=== PATIENT | female | born 1935 | race Caucasian/White ===

== ENCOUNTER 2018-08-02 20:00 | Emergency (ER) | payer BC, OTHER ==
[2018-08-02 20:23] VITALS: BP 170/88; PULSE 88; TEMP 97.7; BMI 24.2
--- NOTE | 2018-08-02 20:23 | PDOC ---
Documentation entered by Jorden Vazquez SCRIBE, acting as scribe for Angel Blount MD. Angel Blount MD: This documentation has been prepared by the George ujng Xhesika, SCRIBE, under my direction and personally reviewed by me in its entirety. I confirm that the documentation accurately reflects all work, treatment, procedures, and medical decision making performed by me. History of Present Illness - General Chief Complaint: Foreign Body (FB) Stated Complaint: FB RT EAR History Source: Patient Exam Limitations: No Limitations - History of Present Illness Initial Comments: 08/02/18 20:25 Procedure note foreign body removal right ear Hearing a tip was readily visible on direct examination a yellow scoop curette was used to remove it without difficulty post removal there was no evidence of trauma to the external canal or eardrum. Patient tolerated the procedure well Assessment and plan: This is an 83-year-old female who hearing a tip was stuck in her right external ear canal. It was removed without difficulty and patient was discharged home. 08/02/18 20:26 The patient is a 83 year old female, with a significant past medical history of high cholesterol (complaint with medications) and Hard of hearing who presents to the emergency department with a foreign body in her ear since this morning. The patient states she fell asleep last night with her hearing aid in her right ear and when she woke up this morning the nub was missing from the hearing aid. The patient denies any pain ear pain or discharge. The patient denies chest pain, shortness of breath, headache or dizziness. The patient denies fever, chills, nausea, vomit, diarrhea or constipation. The patient denies dysuria, frequency, urgency or hematuria. PAST SURGICAL HISTORY: no significant history FAMILY HISTORY: no pertinent history SOCIAL HISTORY: Pt lives with family and is employed. MEDICATIONS: reviewed ALLERGIES: As per nursing notes PCP: Dr. Leanne Tai Past History - Past Medical History Allergies/Adverse Reactions: Allergies Allergy/AdvReac Type Severity Reaction Status Date / Time codeine phosphate AdvReac Severe Vomiting Verified 01/21/13 10:29 [From Tylenol-Codeine #3] tramadol AdvReac Intermediate Nausea Verified 04/17/13 07:40 Home Medications: Ambulatory Orders Aspirin [ASA -] 81 mg PO DAILY 07/22/12 Ramipril [Altace] 5 mg PO DAILY 07/22/12 Simvastatin [Zocor -] 40 mg PO HS 04/16/13 Cholecalciferol (Vitamin D3) [Vitamin D3] 400 unit PO DAILY 04/17/13 Hydrocodone/Acetaminophen [[place] 5-325 Tablet] 1 - 2 tab PO Q6H PRN #60 tablet 04/17/13 Ibuprofen [Motrin -] 800 mg PO Q8H PRN #60 tablet 04/17/13 Anemia: Yes ( A CHILD) Asthma: No Cancer: No Cardiac Disorders: Yes CVA: No COPD: No CHF: No Dementia: No Diabetes: No GI Disorders: No Disorders: No HTN: Yes Hypercholesterolemia: Yes Liver Disease: No Seizures: No Thyroid Disease: No - Surgical History Abdominal Surgery: No Appendectomy: No Cardiac Surgery: Yes (RIGHT CAROTID ENDARTERECTOMY 2004) Cholecystectomy: No Lung Surgery: No Neurologic Surgery: No Orthopedic Surgery: No - Suicide/Smoking/Psychosocial Hx Smoking History: Current every day smoker Have you smoked in the past 12 months: Yes Number of Cigarettes Smoked Daily: 6 'Breaking Loose' booklet given: 01/21/13 Hx Alcohol Use: Yes (RARE) Drug/Substance Use Hx: No Substance Use Type: Alcohol Hx Substance Use Treatment: No Review of Systems - Review of Systems Able to Perform ROS?: Yes Comments:: 08/02/18 20:27 General: No fevers or chills, no weakness, no weight loss HEENT: (+) Foreign body in R ear. No change in vision. No sore throat,. No ear pain CardioVascular: No chest pain or shortness of breath Respiratory:No cough, or wheezing. Gastrointestinal: no nausea, vomiting, diarrhea or constipation, No rectal bleeding Genitourinary: No dysuria, hematuria, or frequency Musculoskeletal: No joint or muscle pain or swelling Neurologic: No headache, vertigo, dizziness or loss of consciousness Psychiatric: nor depression Skin: No rashes or easy bruising Endocrine: no increased thirst or abnormal weight change Allergic: no skin or latex allergy All other systems reviewed and normal *Physical Exam - Vital Signs Last Vital Signs Temp Pulse Resp BP Pulse Ox 97.7 F 88 16 170/88 97 08/02/18 20:05 08/02/18 20:05 08/02/18 20:05 08/02/18 20:05 08/02/18 20:05 - Physical Exam Comments: 08/02/18 20:27 GENERAL: The patient is awake, alert, and fully oriented, in no acute distress. HEAD: Normal with no signs of trauma. EYES: Pupils equal, round and reactive to light, extraocular movements intact, sclera anicteric, conjunctiva clear. EAR: (+) hearing aid tip/foreign body visible in external canal. EXTREMITIES: Normal range of motion, no edema. NEUROLOGICAL: Normal speech, normal gait. PSYCH: Normal mood, normal affect. SKIN: Warm, Dry, normal turgor, no rashes or lesions noted. *DC/Admit/Observation/Transfer Diagnosis at time of Disposition: Foreign body - Discharge Dispostion Disposition: HOME Condition at time of disposition: Stable Decision to Admit order: No - Referrals Referrals: Leanne Tai MD [Primary Care Provider] - - Patient Instructions Additional Instructions: Return to the emergency department immediately with ANY new, persistent or worsening symptoms. Continue any medications as previously prescribed by your physician. You should follow up with your primary doctor as soon as possible regarding today's emergency department visit. . Please make sure your doctor reviews the results of your emergency evaluation. Thank you for coming to the Emergency Department today for your care. It was a pleasure to see you today. Please note that your evaluation is INCOMPLETE until you follow-up with your doctor. - Post Discharge Activity
== END 2018-08-02 20:25 | disposition home or self-care (01) ==
LOC: FER 20:00
PROC: 09C0XZZ Extirpation of Matter from Right External Ear, External Approach (ICD-10-PCS; principal; 2018-08-02)
DX: T16.1XXA Foreign body in right ear, initial encounter (principal); X58.XXXA Exposure to other specified factors, initial encounter; Y93.9 Activity, unspecified; Y92.9 Unspecified place or not applicable; I10 Essential (primary) hypertension; E78.5 Hyperlipidemia, unspecified; F17.210 Nicotine dependence, cigarettes, uncomplicated; Z79.84 Long term (current) use of oral hypoglycemic drugs; Z88.5 Allergy status to narcotic agent
CPT/HCPCS: 69200; 99281-25